=== PATIENT | male | born 1990 | race Caucasian/White ===

== ENCOUNTER 2017-07-19 10:15 | Emergency (ER) | payer OTHER ==
--- NOTE | 2017-07-19 10:44 | EDM.PDOC ---
<Екатерина Capone - Last Filed: 07/19/17 11:05> ED HPI GENERAL MEDICAL PROBLEM - General Chief Complaint: Upper Extremity Injury/Pain Stated Complaint: R ARM INJURY Time Seen by Provider: 07/19/17 10:30 Source of Information: Reports: Patient History Limitations: Reports: No Limitations - History of Present Illness INITIAL COMMENTS - FREE TEXT/NARRATIVE: 26 yo male presents to the ED after smashing his forearm in the villagomez of a car. He was working on the car when the wind knocked the villagomez down onto his arm, catching his right forearm between the fender and the villagomez. He denies any prior injuries, fractures or surgeries to that arm. He has normal sensation to the arm but movement is minimal secondary to pain. This happened at work, just before coming to the ED. Onset: Today, Sudden Duration: Hour(s): (2) Quality: Reports: Ache, Sharp, Throbbing Severity: Moderate Improves with: Reports: None Worsens with: Reports: Movement Context: Reports: Trauma Associated Symptoms: Reports: No Other Symptoms Right Arm Pain Score (Numeric/FACES): 6 Review of Systems - Review of Systems Review Of Systems: See Below Constitutional: Reports: No Symptoms Respiratory: Reports: No Symptoms Cardiovascular: Reports: No Symptoms GI/Abdominal: Reports: No Symptoms Musculoskeletal: Reports: Arm Pain (Right forearm) Skin: Reports: Wound (minor laceration to R forarm in area of trauma with some abrasions) Neurological: Reports: No Symptoms ED EXAM, GENERAL - Physical Exam Exam: See Below Exam Limited By: No Limitations General Appearance: Alert, WD/WN, No Apparent Distress Ears: Hearing Grossly Normal Head: Atraumatic, Normocephalic Neck: Normal Inspection, Full Range of Motion Respiratory/Chest: No Respiratory Distress, Lungs Clear, Normal Breath Sounds, No Accessory Muscle Use Cardiovascular: Regular Rate, Rhythm, No Gallop, No Murmur, No Rub Extremities: Arm Pain (left forearm), Limited Range of Motion, Other (right distal forarm pain on the dorsal aspect of the arm, increased with supination/ pronation of arm. R elbow tender to palpation) Neurological: Alert, Oriented, Normal Cognition, No Motor/Sensory Deficits Psychiatric: Normal Affect, Normal Mood Skin Exam: Warm, Dry, Normal Color, Wound/Incision (minimal abrasions to the right forarm, small laceration with minimal bleeding over area of injury) Course - Vital Signs Last Recorded V/S: Last Vital Signs Temp 98.8 F 07/19/17 10:26 Pulse 102 H 07/19/17 10:26 Resp 20 07/19/17 10:26 BP 125/91 H 07/19/17 10:26 Pulse Ox 100 07/19/17 10:26 - Orders/Labs/Meds Orders: Active Orders 24 hr Category Date Time Status Elbow Min 3V Rt [CR] Stat Exams 07/19/17 10:43 Taken Forearm 2V Rt [CR] Stat Exams 07/19/17 10:43 Taken Departure - Departure Disposition: Home, Self-Care 01 Clinical Impression: Forearm contusion Qualifiers: Encounter type: initial encounter Laterality: right Qualified Code(s): S50.11XA - Contusion of right forearm, initial encounter Forearm abrasion Qualifiers: Encounter type: initial encounter Laterality: right Qualified Code(s): S50.811A - Abrasion of right forearm, initial encounter - Discharge Information Referrals: PCP,None [Primary Care Provider] - Forms: ED Department Discharge, ED Return to Work/School Form Additional Instructions: Polo wrap, ice packs and elevation as needed for swelling, alternate Tylenol and Advil or ibuprofen as needed for discomfort, off work today, return to work tomorrow as tolerated - My Orders Last 24 Hours: My Active Orders 07/19/17 10:43 Elbow Min 3V Rt [CR] Stat Forearm 2V Rt [CR] Stat - Assessment/Plan Last 24 Hours: My Active Orders 07/19/17 10:43 Elbow Min 3V Rt [CR] Stat Forearm 2V Rt [CR] Stat <Rasheed Flowers - Last Filed: 07/19/17 11:51> Departure - Departure Time of Disposition: 11:50 Condition: Fair
--- NOTE | 2017-07-19 12:53 | CR ---
Right forearm: Two views of the right forearm were obtained. Comparison: No previous study. No fracture or other bony abnormality is seen. Impression: 1. No abnormality is identified on right forearm study. Diagnostic code #1
--- NOTE | 2017-07-19 12:53 | CR ---
Right elbow: Four views of the right elbow were obtained. Comparison: No previous elbow exam. No joint effusion is seen. Joint spaces are preserved. No fracture, dislocation or other bony abnormality is seen. Impression: 1. No abnormality is seen on right elbow study. Diagnostic code #1
== END 2017-07-19 12:00 | disposition home or self-care (01) ==
LOC: JD.ED 10:15
DX: S50.11XA Contusion of right forearm, initial encounter (principal); W23.0XXA Caught, crushed, jammed, or pinched between moving objects, initial encounter
CPT/HCPCS: 73080-26-RT; 73080-RT; 73090-26-RT; 73090-RT; 99283

== ENCOUNTER 2019-03-29 16:21 | Emergency (ER) | payer SELFPAY ==
[2019-03-29] MEDS ORDERED: Sodium Chloride 0.9% 10 ML Syringe FLUSH PRN ×2 (16:51→17:18)
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
[2019-03-29] MEDS ORDERED: Iopamidol 612 MG/ML 100 ML Bottle IVPUSH ONE (17:18)
--- NOTE | 2019-03-29 18:23 | CT ---
CT lumbar spine Technique: Multiple axial sections through the lumbar spine were obtained. Reconstructed coronal and sagittal images were obtained. Comparison: No previous lumbar spine imaging. Findings: Old-appearing limbus vertebra is noted off the anterior and superior endplate of L5. Vertebral body heights are maintained. Disc spaces are maintained. Slight deformity is seen within the transverse process of L4 which has the appearance of an old fracture. No acute fracture is appreciated. No traumatic disc herniation is seen. No central canal stenosis or neural foraminal stenosis is seen. No abnormal subluxation or fracture is appreciated. Impression: 1. Probable old fracture within the left L4 transverse process. 2. Old-appearing limbus vertebra off the anterior superior endplate of L5. 3. No acute fracture or traumatic disc herniation is seen. No abnormal subluxation is seen. Diagnostic code #2 Study was dictated in [place] Standard Time
--- NOTE | 2019-03-29 18:23 | CT ---
CT thoracic spine Technique: Multiple axial sections were obtained through the thoracic spine. Reconstructed sagittal and coronal images were reviewed. Findings: Vertebral body heights and disc spaces are maintained. No thoracic spine fracture is seen. No abnormal subluxation is seen. No central canal stenosis or neural foraminal stenosis is seen. Impression: 1. Nothing acute is appreciated on CT study of the thoracic spine. Diagnostic code #1 Study was dictated in [place] Standard Time
--- NOTE | 2019-03-29 18:24 | CT ---
CT chest Technique: Multiple axial sections were obtained from above the lung apices inferiorly through the lung bases. Intravenous contrast was utilized. Comparison: No prior chest imaging. Findings: Opacified great vessels appear within normal limits. There is some pulsation artifact felt to be present within the aorta. No pericardial thickening is seen. No mediastinal hematoma is seen. No pericardial thickening is seen. Lungs show no acute parenchymal change. No pleural effusions are seen. No discrete rib abnormality is appreciated. Reconstructed sagittal images shows no sternal fracture. Impression: 1. Nothing acute is appreciated on CT study of the chest. Diagnostic code #2 CT abdomen and pelvis Technique: Multiple axial sections were obtained from above the dome of the diaphragm inferiorly through the pubic symphysis. Intravenous contrast was utilized. No oral contrast has been given. Comparison: No previous abdominal imaging is available. Findings: Liver contains no focal parenchymal abnormality. Spleen appears within normal limits. Adrenal glands show no nodule. Gallbladder contains no calcified gallstones. Kidneys show symmetric contrast enhancement. No renal abnormality is appreciated. Pancreas shows no discrete abnormality. Aorta shows no aneurysm. No retroperitoneal adenopathy or mesenteric abnormalities are seen. Delayed images shows contrast within the distal ureters as well as contrast within the bladder. Appendix is seen which is normal in size. Impression: 1. Nothing acute is seen on CT study of the abdomen and pelvis. Diagnostic code #1 Study was dictated in [place] Standard Time
== END 2019-03-29 18:25 | disposition home or self-care (01) ==
LOC: JD.ED 16:21
DX: S39.012A Strain of muscle, fascia and tendon of lower back, initial encounter (principal); S20.211A Contusion of right front wall of thorax, initial encounter; E10.9 Type 1 diabetes mellitus without complications; Z79.899 Other long term (current) drug therapy; F17.210 Nicotine dependence, cigarettes, uncomplicated; V69.40XA Driver of heavy transport vehicle injured in collision with unspecified motor vehicles in traffic accident, initial encounter
CPT/HCPCS: 71260; 72128; 72131; 74177; 99284; Q9967; 99283

== ENCOUNTER 2020-06-15 20:17 | Emergency (ER) | payer SELFPAY ==
--- NOTE | 2020-06-15 20:45 | EDM.PDOC ---
ED HPI GENERAL MEDICAL PROBLEM - General Chief Complaint: Diabetic Complaint Stated Complaint: NEEDS MED REFILL Time Seen by Provider: 06/15/20 20:27 Source of Information: Reports: Patient History Limitations: Reports: No Limitations - History of Present Illness INITIAL COMMENTS - FREE TEXT/NARRATIVE: Mr. Pierre is a very pleasant 29-year-old gentleman with a past medical history significant for type 1 diabetes, who now presents the ED requesting that we give him a vial of NovoLog R insulin, after he accidentally knocked his vial off his kitchen counter around 18:30 this evening, breaking it. The patient acquires his insulin [id number], however, tonight being Tuesday night, there are no pharmacies open. He states that he last took insulin around 18:30 this evening, and that he takes it 3-4 times a day based on a sliding scale. He denies having any recent illness or other medical issues; he is only here to get a vial of insulin. Here in the ED, the patient is found to be hemodynamically stable, afebrile, saturating 100% on room air. He appears to be comfortable, and in no acute distress. The patient denies having a recent fever, chills, sore throat, ear pain, nasal or sinus congestion, cough, dyspnea, chest pain, palpitations, nausea, vomiting, constipation, diarrhea, abdominal pain, urinary symptoms, recent weight gain or weight loss, recent bloody bowel movements or black bowel movements, recent joint aches, headaches, or rashes. The patient does not have a PCP. - Related Data Allergies Allergy/AdvReac Type Severity Reaction Status Date / Time No Known Allergies Allergy Verified 07/19/17 11:17 Home Meds: Home Meds Insulin Regular, Human [HumuLIN R] 100 unit SQ TID 07/19/17 [History] Past Medical History Musculoskeletal History: Reports: Fracture (mandible) Endocrine/Metabolic History: Reports: Diabetes, Type I - Past Surgical History HEENT Surgical History: Reports: Other (See Below) (Mandible wiring) Social & Family History - Family History Family Medical History: No Pertinent Family History - Tobacco Use Tobacco Use Status *Q: Current Every Day Tobacco User Years of Tobacco use: 8 Packs/Tins Daily: 0.5 Packs/Tins Daily Comment: Down from 1 ppd Tobacco Use Comment: Started smoking at 21 yrs old - Caffeine Use Caffeine Use: Reports: Soda, Tea - Alcohol Use Alcohol Use History: Yes Alcohol Use Frequency: Rarely - Recreational Drug Use Recreational Drug Use: No - Living Situation & Occupation Living situation: Reports: , with Spouse 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 ED EXAM GENERAL NO PERIP PULSE - Physical Exam Exam: See Below Exam Limited By: No Limitations General Appearance: Alert, WD/WN, No Apparent Distress Eye Exam: Bilateral Eye: EOMI, Normal Inspection Ears: Normal External Exam, Hearing Grossly Normal Nose: Normal Inspection Throat/Mouth: Normal Inspection, Normal Lips, Normal Voice, No Airway Compromise Head: Atraumatic, Normocephalic Neck: Normal Inspection, Full Range of Motion Respiratory/Chest: No Respiratory Distress, Lungs Clear, Normal Breath Sounds, No Accessory Muscle Use Cardiovascular: Normal Peripheral Pulses, Regular Rate, Rhythm, No Edema, No Gallop, No JVD, No Murmur, No Rub GI/Abdominal: Normal Bowel Sounds, Soft, Non-Tender, No Organomegaly, No Distention, No Abnormal Bruit, No Mass Back Exam: Normal Inspection, Full Range of Motion, NT Extremities: Normal Inspection, Normal Range of Motion, No Pedal Edema, Normal Capillary Refill Neurological: Alert, Oriented, Normal Cognition, No Motor/Sensory Deficits Psychiatric: Normal Affect Skin Exam: Warm, Dry, Intact, Normal Color, No Rash Course - Vital Signs Last Recorded V/S: Last Vital Signs Temp 36.1 C 06/15/20 20:34 Pulse 100 06/15/20 20:34 Resp 20 06/15/20 20:34 BP 134/82 06/15/20 20:34 Pulse Ox 100 06/15/20 20:34 - Orders/Labs/Meds Meds: Medications Discontinued Medications Generic Name Dose Route Start Last Admin Trade Name Germán PRN Reason Stop Dose Admin Insulin Human Regular 1 unit 06/15/20 21:14 Insulin Regular, Human 100 Units/Ml 3 Ml Vial SUBCUT 06/15/20 21:15 ONETIME STA - Re-Assessments/Exams Free Text/Narrative Re-Assessment/Exam: 06/15/20 20:44 As above, the patient knocked his vial of insulin of the counter and broke it earlier this evening, and is requesting that we give him a bottle of insulin to last him until he can get to the pharmacy to purchase more. No pharmacies are open at this time, being Tuesday night. He has no medical complaints. I will talk to our charge nurse about how we might be able to do that for him. 06/15/20 21:18 I spoke to the charge nurse, Elizabeth CRUZ. I will order a unit of regular insulin, and she will simply give the vial to the patient. We only carry Humulin R, not Novolin R, however, they are virtually identical. Departure - Departure Time of Disposition: 21:19 Disposition: Home, Self-Care 01 Condition: Good Clinical Impression: Medication refill - Discharge Information *PRESCRIPTION DRUG MONITORING PROGRAM REVIEWED*: Not Applicable *COPY OF PRESCRIPTION DRUG MONITORING REPORT IN PATIENT SKYLA: Not Applicable Referrals: PCP,None [Ordering Only Provider] - Forms: ED Department Discharge Additional Instructions: You were seen in the emergency room requesting a refill of your Novolin R insulin, after your vital was accidentally broken. You have been given a vial of Humulin R insulin, which is virtually identical to Novolin R, and can be taken at the same dosage and frequency. If any other problems, please do not hesitate to return to the ER. Sepsis Event Note (ED) - Evaluation Sepsis Screening Result: No Definite Risk - Focused Exam Vital Signs: Vital Signs Temp Pulse Resp BP Pulse Ox 06/15/20 20:34 36.1 C 100 20 134/82 100
[2020-06-15] MEDS ORDERED: Insulin Regular, Human 100 Units/ML 3 ML Vial SUBCUT STA (21:14)
== END 2020-06-15 21:30 | disposition home or self-care (01) ==
LOC: JD.ED 20:17
DX: E10.9 Type 1 diabetes mellitus without complications (principal); Z76.0 Encounter for issue of repeat prescription; Z72.0 Tobacco use
CPT/HCPCS: 99281; J1815; 99283